=== PATIENT | male | born 1995 | race Caucasian/White ===

== ENCOUNTER 2021-03-20 13:24 | Emergency (ER) | payer OTHER ==
[~2021-03-20] VITALS: Ht 170.2 cm; Wt 93.4 kg
--- NOTE | 2021-03-20 13:35 | NUR ---
BIBSELF, C/O OF DIARRHEA X5DAYS, VOMITED THIS MORNING, NAUSEA, ABD PAIN 7/10 UPON PALPATION, AAOX3, BREATHING EVEN AND NON LABORED
--- NOTE | 2021-03-20 13:39 | NUR ---
SEEN BY DR PORTER
[2021-03-20] MEDS ORDERED: LOPE-195 PO (13:40)
[2021-03-20] MEDS ORDERED: CIPR-262 PO (13:40)
--- NOTE | 2021-03-20 13:45 | NUR ---
Patient discharged to home in stable condition. Written and verbal after care instructions given. Patient verbalizes understanding of instruction. PT ambulatory with a steady gait
[2021-03-20 13:46] VITALS: BP 109/73
--- NOTE | 2021-03-20 13:46 | NUR ---
Patient discharged to home in stable condition. Written and verbal after care instructions given. Patient verbalizes understanding of instruction.
== END 2021-03-20 13:46 | disposition home or self-care (01) ==
LOC: ER 13:28
DX: R19.7 Diarrhea, unspecified (principal); F17.200 Nicotine dependence, unspecified, uncomplicated; Z79.899 Other long term (current) drug therapy